=== PATIENT | female | born 1950 | race African-American/Black ===

== ENCOUNTER 2018-02-16 10:53 | Emergency (ER) | payer BC ==
[~2018-02-16] VITALS: Ht 162.6 cm; Wt 86.5 kg
[2018-02-16 12:06] LABS: BASOPHILS % 0.5 % (0.0-2.0); HEMATOCRIT. 44.1 % (36.0-48.0); HEMOGLOBIN. 14.9 g/dL (12.0-16.0); LYMPHOCYTES % 20.7 % (20.0-50.0); MEAN CORPUSCULAR HEMOGLOBIN 31.6 pg (28.0-32.0); MEAN CORPUSCULAR VOLUME 93.5 fL (81.0-99.0); MEAN PLATELET VOLUME 8.8 fl (7.4-10.4); MONOCYTES % 7.3 % (2.0-8.0); NEUTROPHILS % 70.5 % (40.0-76.0); PLATELET 226 x1000/uL (130-400); RED BLOOD CELL COUNT 4.72 mill/uL (4.2-5.4); RED CELL DISTRIBUTION WIDTH 14.4 % (11.6-14.6)
[2018-02-16 12:08] LABS: CHLORIDE 103 mEq/L (98-107)
[2018-02-16 12:09] LABS: CLARITY URINE CLEAR (CLEAR); COLOR URINE YELLOW (YELLOW); KETONES URINE NEGATIVE (NEGATIVE); LEUKOCYTE ESTERASE URINE NEGATIVE (NEGATIVE); NITRITE URINE NEGATIVE (NEGATIVE); OCCULT BLOOD URINE 1+ (NEGATIVE); PROTEIN URINE NEGATIVE (NEGATIVE); SPECIFIC GRAVITY URINE 1.005 (1.005-1.030); UROBILINOGEN URINE 0.2 E.U./dL (0.2-1.0)
[2018-02-16] MEDS ORDERED: SODIUM CHLORIDE 0.9% 1,000 ML IV ONE (12:28)
[2018-02-16] MEDS ORDERED: CLONIDINE 0.1MG TABLET PO ONE (14:30)
[2018-02-16] MEDS ORDERED: AMOXICILLIN 500 MG CAPSULE PO ONE (14:30)
[2018-02-16 15:15] VITALS: BP 160/92
== END 2018-02-17 06:30 | disposition home or self-care (01) ==
LOC: ER 10:55
DX: I16.0 Hypertensive urgency (principal)
CPT/HCPCS: 36415; 70450; 71045; 80053; 81003; 85025; 93005; 96360; 96361; 99285; J7030; Z7610